=== PATIENT | male | born 1995 | race African-American/Black ===

== ENCOUNTER 2019-07-15 18:51 | Emergency (ER) | payer BC ==
[~2019-07-15] VITALS: Ht 175.3 cm; Wt 79.5 kg
[2019-07-15 19:05] VITALS: BP 113/74; TEMP 99
[2019-07-15 22:08] VITALS: PULSE 88
== END 2019-07-15 22:08 | disposition home or self-care (01) ==
LOC: COL.ER 18:51
DX: S61.411A Laceration without foreign body of right hand, initial encounter (principal); Z23 Encounter for immunization; W22.8XXA Striking against or struck by other objects, initial encounter

== ENCOUNTER → 2019-07-25 | Outpatient (CLI) | payer BC ==
[2019-07-25 17:06] VITALS: BP 129/67; PULSE 88; TEMP 97.7
== END ==
LOC: COL.ER 16:57
DX: S61.411D Laceration without foreign body of right hand, subsequent encounter (principal); X58.XXXD Exposure to other specified factors, subsequent encounter